=== PATIENT | male | born 1945 | race Caucasian/White ===

== ENCOUNTER 2016-10-10 13:38 | Outpatient (CLI) | payer MEDICARE | END 2016-10-10 13:39 | disposition home or self-care (01) | DX: I82.4Z1 Acute embolism and thrombosis of unspecified deep veins of right distal lower extremity (principal) ==

== ENCOUNTER 2016-10-30 13:41 | Outpatient (CLI) | payer MEDICARE | END 2016-10-30 13:42 | disposition home or self-care (01) | DX: I82.4Z1 Acute embolism and thrombosis of unspecified deep veins of right distal lower extremity (principal) ==

== ENCOUNTER 2016-11-15 12:25 | Outpatient (CLI) | payer MEDICARE | END 2016-11-15 12:26 | disposition home or self-care (01) | DX: I82.4Z1 Acute embolism and thrombosis of unspecified deep veins of right distal lower extremity (principal) ==

== ENCOUNTER 2016-11-25 11:35 | Outpatient (CLI) | payer MEDICARE | END 2016-11-25 11:36 | disposition home or self-care (01) | DX: I82.4Z1 Acute embolism and thrombosis of unspecified deep veins of right distal lower extremity (principal) ==

== ENCOUNTER 2016-12-26 15:21 | Outpatient (CLI) | payer MEDICARE | END 2016-12-26 15:22 | disposition home or self-care (01) | DX: I82.4Z1 Acute embolism and thrombosis of unspecified deep veins of right distal lower extremity (principal) ==

== ENCOUNTER 2017-01-13 13:15 | Outpatient (CLI) | payer MEDICARE | END 2017-01-13 13:16 | disposition home or self-care (01) | DX: I82.4Z1 Acute embolism and thrombosis of unspecified deep veins of right distal lower extremity (principal) ==

== ENCOUNTER 2017-02-10 13:39 | Outpatient (CLI) | payer MEDICARE | END 2017-02-10 13:40 | disposition home or self-care (01) | DX: I82.4Z1 Acute embolism and thrombosis of unspecified deep veins of right distal lower extremity (principal) ==

== ENCOUNTER 2017-02-25 10:10 | Outpatient (CLI) | payer MEDICARE ==
[2017-02-25 18:16] LABS: INR 2.1 (0.8-1.2); PT - PROTHROMBIN TIME 23.7 secs (9.9-12.6)
== END 2017-02-25 10:11 | disposition home or self-care (01) ==
LOC: LAB.F 10:10
PROVIDERS: ATTEND Emergency Medicine
DX: I82.4Z1 Acute embolism and thrombosis of unspecified deep veins of right distal lower extremity (principal)
CPT/HCPCS: 36415; 85610

== ENCOUNTER 2017-03-12 14:34 | Outpatient (CLI) | payer MEDICARE ==
[2017-03-12 18:42] LABS: INR 2.1 (0.8-1.2); PT - PROTHROMBIN TIME 23.9 secs (9.9-12.6)
== END 2017-03-12 14:35 | disposition home or self-care (01) ==
LOC: LAB.F 14:34
PROVIDERS: ATTEND Emergency Medicine
DX: I82.4Z1 Acute embolism and thrombosis of unspecified deep veins of right distal lower extremity (principal)
CPT/HCPCS: 36415; 85610

== ENCOUNTER 2017-04-14 13:44 | Outpatient (CLI) | payer MEDICARE ==
[2017-04-14 19:31] LABS: PT - PROTHROMBIN TIME 22.2 secs (9.9-12.6)
== END 2017-04-14 13:45 | disposition home or self-care (01) ==
LOC: LAB.F 13:44
PROVIDERS: ATTEND Emergency Medicine
DX: I82.4Z1 Acute embolism and thrombosis of unspecified deep veins of right distal lower extremity (principal)
CPT/HCPCS: 36415; 85610

== ENCOUNTER 2017-05-13 09:05 | Outpatient (CLI) | payer MEDICARE ==
[2017-05-13 11:42] LABS: INR 2.5 (0.8-1.2)
== END 2017-05-13 09:06 | disposition home or self-care (01) ==
LOC: LAB.F 09:05
PROVIDERS: ATTEND Emergency Medicine
DX: I82.4Z1 Acute embolism and thrombosis of unspecified deep veins of right distal lower extremity (principal)
CPT/HCPCS: 36415; 85610

== ENCOUNTER 2017-05-27 08:42 | Outpatient (CLI) | payer MEDICARE | END 2017-05-27 08:43 | disposition home or self-care (01) | LOC: LAB.F 08:42 | PROVIDERS: ATTEND Ophthalmology | DX: Z79.01 Long term (current) use of anticoagulants (principal) | CPT/HCPCS: 85610 ==

== ENCOUNTER 2017-06-13 13:20 | Outpatient (CLI) | payer MEDICARE ==
[2017-06-13 18:29] LABS: INR 2.1 (0.8-1.2); PT - PROTHROMBIN TIME 23.6 secs (9.9-12.6)
== END 2017-06-13 13:21 | disposition home or self-care (01) ==
LOC: LAB.F 13:20
PROVIDERS: ATTEND Emergency Medicine
DX: I82.4Z1 Acute embolism and thrombosis of unspecified deep veins of right distal lower extremity (principal)
CPT/HCPCS: 36415; 85610

== ENCOUNTER 2017-08-13 13:04 | Outpatient (CLI) | payer MEDICARE | END 2017-08-13 13:05 | disposition home or self-care (01) | LOC: LAB.F 13:04 | PROVIDERS: ATTEND Emergency Medicine | DX: I82.4Z1 Acute embolism and thrombosis of unspecified deep veins of right distal lower extremity (principal) | CPT/HCPCS: 36415; 85610 ==

== ENCOUNTER 2017-10-16 09:36 | Outpatient (CLI) | payer MEDICARE | END 2017-10-16 09:37 | disposition home or self-care (01) | LOC: LAB.F 09:36 | PROVIDERS: ATTEND Emergency Medicine | DX: I82.4Z1 Acute embolism and thrombosis of unspecified deep veins of right distal lower extremity (principal) | CPT/HCPCS: 85610 ==

== ENCOUNTER 2017-12-12 14:16 | Outpatient (CLI) | payer MEDICARE | END 2017-12-12 14:17 | disposition home or self-care (01) | LOC: LAB.F 14:16 | PROVIDERS: ATTEND Emergency Medicine | DX: I82.4Z1 Acute embolism and thrombosis of unspecified deep veins of right distal lower extremity (principal) | CPT/HCPCS: 85610 ==

== ENCOUNTER 2018-02-25 08:00 | Outpatient (CLI) | payer MEDICARE | END 2018-02-25 08:01 | LOC: LAB.F 08:00 | PROVIDERS: ATTEND Emergency Medicine | DX: I82.4Z1 Acute embolism and thrombosis of unspecified deep veins of right distal lower extremity (principal) | CPT/HCPCS: 85610 ==

== ENCOUNTER 2018-03-09 13:07 | Outpatient (CLI) | payer MEDICARE ==
[2018-03-09 18:27] LABS: BASOPHILS % (AUTO) 0.6 %; EOSINOPHILS # (AUTO) 0.1 10^3/uL (0.0-0.7); EOSINOPHILS % (AUTO) 1.1 %; HGB - HEMOGLOBIN 14.9 g/dL (14.0-18.0); LYMPHOCYTES # (AUTO) 0.9 10^3/uL (1.5-3.5); LYMPHOCYTES % (AUTO) 17.8 %; MEAN CORPUSCULAR HEMOGLOBIN 32.6 pg (27.0-31.0); MEAN CORPUSCULAR HGB CONC 34.6 g/dL (32.0-36.0); MEAN PLATELET VOLUME 9.4 fL (7.4-11.4); MONOCYTES # (AUTO) 0.5 10^3/uL (0.0-1.0); MONOCYTES % (AUTO) 9.2 %; NEUTROPHILS # (AUTO) 3.7 10^3/uL (1.5-6.6); NEUTROPHILS % (AUTO) 71.3 %; PLT - PLATELET COUNT 173 10^3/uL (130-450); RED BLOOD COUNT 4.58 10^6/uL (4.70-6.10); RED CELL DISTRIBUTION WIDTH 13.8 % (12.0-15.0); WHITE BLOOD COUNT 5.2 x10^3/uL (4.8-10.8)
[2018-03-09 18:48] LABS: ALBUMIN 3.9 g/dL (3.2-5.5); ALBUMIN/GLOBULIN RATIO 1.2 (1.0-2.2); ALKALINE PHOSPHATASE 59 IU/L (42-121); ALT ALANINE AMINOTRANSFERASE 29 IU/L (10-60); AST ASPARTATE AMINOTRANSFERASE 30 IU/L (10-42); BILIRUBIN,TOTAL 0.7 mg/dL (0.2-1.0); BUN - BLOOD UREA NITROGEN 17 mg/dL (6-20); CALCIUM 9.1 mg/dL (8.5-10.3); CARBON DIOXIDE - CO2 23 mmol/L (21-32); CHLORIDE 108 mmol/L (101-111); CHOL/HDL RATIO 4.2 (<5.0); CHOLESTEROL 139 mg/dL; CREATININE 0.9 mg/dL (0.6-1.2); GFR - MDRD 83 (>89); GLUCOSE 131 mg/dL (70-100); HDL CHOLESTEROL 33 mg/dL; LDL CHOLESTEROL,CALCULATED 67 mg/dL; SODIUM 138 mmol/L (135-145); TOTAL PROTEIN 7.2 g/dL (6.7-8.2); VLDL CHOLESTEROL 39 mg/dL
[2018-03-09 19:10] LABS: HB2 TOTAL 16.6 g/dL; HEMOGLOBIN A1C 0.82 g/dL; HEMOGLOBIN A1C % 6.7 % (4.6-6.2)
== END 2018-03-09 13:08 | disposition home or self-care (01) ==
LOC: LAB.F 13:07
PROVIDERS: ATTEND Internal Medicine
DX: I10 Essential (primary) hypertension (principal); E78.1 Pure hyperglyceridemia
CPT/HCPCS: 36415; 80053; 80061; 83036; 83721; 84443; 85025

== ENCOUNTER 2018-08-17 08:00 | Outpatient (CLI) | payer MEDICARE | END 2018-08-17 08:01 | disposition home or self-care (01) | LOC: LAB 08:00 | PROVIDERS: ATTEND Internal Medicine | DX: N21.0 Calculus in bladder (principal) | CPT/HCPCS: 87086 ==

== ENCOUNTER 2018-12-03 07:45 | Outpatient (CLI) | payer MEDICARE ==
[2018-12-03 11:45] LABS: HGB - HEMOGLOBIN 15.8 g/dL (14.0-18.0); MEAN CORPUSCULAR HEMOGLOBIN 31.5 pg (27.0-31.0); MEAN CORPUSCULAR HGB CONC 34.6 g/dL (32.0-36.0); MEAN PLATELET VOLUME 9.1 fL (7.4-11.4); RED BLOOD COUNT 5.03 10^6/uL (4.70-6.10); RED CELL DISTRIBUTION WIDTH 13.2 % (12.0-15.0); WHITE BLOOD COUNT 5.4 x10^3/uL (4.8-10.8)
[2018-12-03 15:11] LABS: ALBUMIN 4.2 g/dL (3.2-5.5); ALBUMIN/GLOBULIN RATIO 1.4 (1.0-2.2); ALKALINE PHOSPHATASE 78 IU/L (42-121); ALT ALANINE AMINOTRANSFERASE 45 IU/L (10-60); AST ASPARTATE AMINOTRANSFERASE 40 IU/L (10-42); BILIRUBIN,TOTAL 0.8 mg/dL (0.2-1.0); BUN - BLOOD UREA NITROGEN 19 mg/dL (6-20); CALCIUM 9.7 mg/dL (8.5-10.3); CARBON DIOXIDE - CO2 24 mmol/L (21-32); CHLORIDE 102 mmol/L (101-111); CHOLESTEROL 169 mg/dL; CREATININE 1.1 mg/dL (0.6-1.2); GFR - MDRD 65 (>89); GLUCOSE 179 mg/dL (70-100); HDL CHOLESTEROL 34 mg/dL; LDL CHOLESTEROL,CALCULATED 72 mg/dL; LDL/HDL RATIO 2.1 (<3.6); SODIUM 137 mmol/L (135-145); TOTAL PROTEIN 7.3 g/dL (6.7-8.2); VLDL CHOLESTEROL 63 mg/dL
== END 2018-12-03 07:46 | disposition home or self-care (01) ==
LOC: LAB.F 07:45
PROVIDERS: ATTEND Internal Medicine
DX: I10 Essential (primary) hypertension (principal); M54.5 Low back pain
CPT/HCPCS: 36415; 80053; 80061; 83721; 84443; 85027

== ENCOUNTER 2024-05-03 12:41 | Emergency (ER) | payer MEDICARE ==
[2024-05-03 13:08] LABS: BASOPHILS % (AUTO) 0.3 %; EOSINOPHILS % (AUTO) 0.6 %; HCT - HEMATOCRIT 49.1 % (42.0-52.0); HGB - HEMOGLOBIN 16.6 g/dL (14.0-18.0); LYMPHOCYTES # (AUTO) 1.3 10^3/uL (1.5-3.5); LYMPHOCYTES % (AUTO) 18.9 %; MEAN CORPUSCULAR HEMOGLOBIN 30.6 pg (27.0-31.0); MEAN CORPUSCULAR HGB CONC 33.8 g/dL (32.0-36.0); MEAN CORPUSCULAR VOLUME 90.4 fL (80.0-94.0); MEAN PLATELET VOLUME 10.3 fL (7.4-11.4); MONOCYTES # (AUTO) 0.5 10^3/uL (0.0-1.0); NEUTROPHILS # (AUTO) 4.9 10^3/uL (1.5-6.6); NEUTROPHILS % (AUTO) 72.9 %; PLT - PLATELET COUNT 218 10^3/uL (130-450); RED BLOOD COUNT 5.43 10^6/uL (4.70-6.10); RED CELL DISTRIBUTION WIDTH 12.9 % (12.0-15.0); WHITE BLOOD COUNT 6.7 x10^3/uL (4.8-10.8)
[2024-05-03 13:27] LABS: ALBUMIN 4.6 g/dL (3.2-5.5); ALBUMIN/GLOBULIN RATIO 1.6 (1.0-2.2); BILIRUBIN,TOTAL 0.5 mg/dL (0.2-1.0); CALCIUM 10.8 mg/dL (8.5-10.3); CREATININE 1.2 mg/dL (0.6-1.3); POTASSIUM 4.1 mmol/L (3.5-4.5); TOTAL PROTEIN 7.5 g/dL (6.4-8.9)
--- NOTE | 2024-05-03 14:22 | ED Physician Documentation ---
History of Present Illness - Stated complaint Stated Complaint: R SIDE PX - Chief complaint Chief Complaint: Abd Pain - Additonal information Additional information: 78-year-old male with history of bladder stones, hypertension, type 2 diabetes presents emergency department for right flank pain. Patient says that this feels very similar to previous episodes of bladder sounds a send in the past. His pain has been ongoing and hurting now for the last 4 days he thought he was going to be able to tough it out but pain has increased in severity today. No recent fevers or chills no nausea or vomiting no difficulty with urination. Patient says that he does not drink enough fluids Does not feel like he manages his a diet very well. Patient says that he has had it blasted before from his urologist at [place] over a decade ago. He has not taken any medication for pain at home. PD PAST MEDICAL HISTORY - Past Medical History Past Medical History: Yes Cardiovascular: Hypertension Endocrine/Autoimmune: Type 2 diabetes - Past Surgical History Past Surgical History: Yes - Present Medications Home Medications: Ambulatory Orders Medication Instructions Recorded Confirmed Atorvastatin [Lipitor] 40 mg PO QPM 05/03/24 05/03/24 Lisinopril [Zestril] 1 tab PO DAILY 05/03/24 05/03/24 carvediloL [Coreg] 1 tab PO DAILY 05/03/24 05/03/24 glipiZIDE [Glipizide ER] 1 tab PO DAILY 05/03/24 05/03/24 - Allergies Allergies/Adverse Reactions: Allergies Allergy/AdvReac Type Severity Reaction Status Date / Time bacitracin Allergy Edema Verified 05/03/24 13:06 [From Neosporin ([id number])] neomycin Allergy Edema Verified 05/03/24 13:06 [From Neosporin ([id number])] polymyxin B Allergy Edema Verified 05/03/24 13:06 [From Neosporin ([id number])] - Social History Does the pt smoke?: No Smoking Status: Never smoker Does the pt drink ETOH?: No Does the pt have substance abuse?: No - Immunizations Immunizations are current?: Yes PD ED PE NORMAL - Vitals Vital signs reviewed: Yes - General General: Alert and oriented X 3, No acute distress, Well developed/nourished - HEENT HEENT: Atraumatic, PERRL - Cardiac Cardiac: RRR - Respiratory Respiratory: No respiratory distress, Clear bilaterally - Abdomen Abdomen: Normal bowel sounds, Soft - Back Back: Other (Right CVA tenderness) - Derm Derm: Normal color, Warm and dry, No rash Results - Vitals Vitals: Vital Signs - 24 hr 05/03/24 05/03/24 05/03/24 12:46 14:49 16:00 Temperature 36.8 C Heart Rate 62 69 91 Respiratory 16 18 18 Rate Blood Pressure 160/70 H 166/86 H 171/85 H O2 Saturation 96 95 98 05/03/24 17:11 Temperature Heart Rate 71 Respiratory 22 Rate Blood Pressure 165/91 H O2 Saturation 100 Oxygen O2 Source Room air - Labs Labs: Laboratory Tests 05/03/24 05/03/24 05/03/24 13:02 13:02 16:20 WBC 6.7 RBC 5.43 Hgb 16.6 Hct 49.1 MCV 90.4 MCH 30.6 MCHC 33.8 RDW 12.9 Plt Count 218 MPV 10.3 Neut # (Auto) 4.9 Lymph # (Auto) 1.3 L Cache # (Auto) 0.5 Eos # (Auto) 0.0 Baso # (Auto) 0.0 Absolute Nucleated RBC 0.00 Nucleated RBC % 0.0 Sodium 137 Potassium 4.1 Chloride 107 Carbon Dioxide 23 Anion Gap 7.0 BUN 28 H Creatinine 1.2 Estimated GFR (MDRD) 58 L Glucose 175 H Calcium 10.8 H Total Bilirubin 0.5 AST 17 ALT 15 Alkaline Phosphatase 81 Total Protein 7.5 Albumin 4.6 Globulin 2.9 Albumin/Globulin Ratio 1.6 Lipase 28 Urine Color YELLOW Urine Clarity HAZY Urine pH 5.5 Ur Specific Thornton >=1.030 H Urine Protein TRACE Urine Glucose (UA) NEGATIVE Urine Ketones NEGATIVE Urine Occult Blood LARGE H Urine Nitrite NEGATIVE Urine Bilirubin NEGATIVE Urine Urobilinogen 0.2 (NORMAL) Ur Leukocyte Esterase NEGATIVE Urine RBC 6-10 H Urine WBC 0-3 Ur Squamous Epith Cells FEW Squamous Urine Bacteria Rare Ur Microscopic Review INDICATED Urine Culture Comments NOT INDICATED - Rads (name of study) CT KUB Relevant Findings:: Final report received, EMP independent interpretation of test (No hydronephrosis or obstructing renal stone multiple large calcified urinary bladder stones diverticulosis without diverticulitis), Other PD Medical Decision Making - ED course ED course: 78-year-old male presents emergency department for right flank pain. Patient says that that this feels very similar to previous bladder stone issues that he has had. He mostly feels this pain in his right kidney area CT was complete for further evaluation and it does not appear the patient has hydronephrosis or any obstructing renal stones but he does have multiple large calcified urinary bladder stones. He also appears to have diverticulosis without diverticulitis. Patient was given a liter of IV fluids here in the emergency department as well as some IV Toradol to help with pain and does report significant improvement in symptoms. Labs are complete for further evaluation he has no white count concerning for possible pyelonephritis BUN is slightly elevated at 28 GFR slightly suppressed at 58 his calcium is also slightly elevated at 10.8 which she is told to follow-up with his primary care provider about for further evaluation. His urine has a large amount of blood in it no leukocytes or nitrites making me less concerned or suspicious for possible urinary tract infection. He was told to follow-up with urology outpatient he says that he does have a urologist with [facility] but he is also interested in following up with urologist Dr. Heath Perry outpatient. Patient still to follow-up with his primary care provider he was told to alternate between Tylenol ibuprofen for pain and discomfort says that he wants avoid narcotics at all costs and did report that he felt significant improvement of symptoms with IV Toradol. He is able to void without any difficulty there is no further emergent workup indicated. ER return precautions given all questions answered patient safe for discharge. Departure - Departure Disposition: 01 Home, Self Care Clinical Impression: Bladder stones Instructions: Lithotripsy Shock Wave Follow-Up: Orlando Joe MD [Provider Admit Priv/Credential] - Comments: Thank you for trusting us with your care. We have treated your pain with Toradol going home you can take 600 mg of ibuprofen every 6 hours for pain and discomfort and 1000 mg of Tylenol every 8 hours for pain and discomfort. Make sure that you are drinking plenty of fluids and see below for foods to avoid for bladder stone. I have attached Dr. Orlando Joe's information below make sure that you call your primary care provider and ask for referral to his office and call his office to see how soon they are able to get you in to have these bladder stones removed. Please come back if the pain gets any worse or if you have any other concerning emergent symptoms or if you are unable to void wishing you a speedy recovery. What cant I eat/drink if I have a bladder stone? Certain foods and drinks can increase your chances of developing bladder stones. These include products that contain a lot of sodium (salt) and sugars. To help prevent bladder stones, its a good idea to avoid: Processed foods. Fast food. Canned soups and vegetables. Lunch meats. Soda pop. Forms: PCP List Discharge Date/Time: 05/03/24 17:11
--- NOTE | 2024-05-03 14:34 | CT Report ---
PROCEDURE: KUB INDICATIONS: right flank pain TECHNIQUE: A CT scan of the abdomen and pelvis was performed without the use of intravenous contrast. Images we re recorded and evaluated at appropriate window settings. Reformats: coronal and sagittal. For radiat ion dose reduction, the following was used: automated exposure control, adjustment of mA and/or kV ac cording to patient size. COMPARISON: None. FINDINGS: Image quality: Diagnostic. Lower chest: Unremarkable. Liver: No contour-deforming mass. Gallbladder: There is normal. Biliary tree: No intrahepatic or extrahepatic dilation, accounting for age. Spleen: No splenomegaly. Pancreas: No pancreatic ductal dilation. Adrenals: No adrenal nodule. Kidneys and ureters: No hydronephrosis. No contour-deforming mass. Stomach, bowel and peritoneum: Small hiatal hernia. Small duodenal diverticulum. No gastric or small bowel dilation. No abnormal wall thickening. No pathologic free fluid. Multiple diverticula are noted in the colon without evidence of diverticulitis. The appendix is normal. Lymph nodes: No central or retroperitoneal adenopathy. Vessels: No infrarenal aortic aneurysm. Reproductive organs: Unremarkable. Bladder: Bladder wall thickness is normal, accounting for underdistention. Multiple calcified bladder stones ranging in size from 0.8-1.7 cm. Pelvic lymph nodes: No adenopathy by size criteria. Bones: No aggressive osseous abnormality. Spine degenerative disc disease and facet arthropathy are n oted. Other: No significant ventral or inguinal hernia. IMPRESSION: No hydronephrosis or obstructing renal stone. Multiple large calcified urinary bladder stones. Colonic diverticulosis without evidence of diverticulitis. Normal appendix. Reviewed by: Isa Baker MD, PhD on 05/03/2024 2:33 PM PDT Approved by: Isa Baker MD, PhD on 05/03/2024 2:33 PM PDT Station ID: [id number]
[2024-05-03] MEDS: KETOROLAC 15 MG/ML VIAL IVP STA (15:19)
[2024-05-03] MEDS: SODIUM CHLORIDE 0.9% 1,000 ML IV STA (15:19)
[2024-05-03 16:28] LABS: BILIRUBIN,URINE NEGATIVE (NEGATIVE); GLUCOSE, URINE (UA) NEGATIVE (NEGATIVE); KETONES,URINE (UA) NEGATIVE (NEGATIVE); LEUKOCYTE ESTERASE, URINE NEGATIVE (NEGATIVE); NITRITE,URINE NEGATIVE (NEGATIVE); OCCULT BLOOD,URINE LARGE (NEGATIVE); PH,URINE 5.5 PH (5.0-7.5); PROTEIN,URINE TRACE mg/dL (NEGATIVE); UROBILINOGEN,URINE 0.2 (NORMAL) E.U./dL (NORMAL)
[2024-05-03 16:30] LABS: CLARITY,URINE HAZY (CLEAR)
[2024-05-03 16:38] LABS: WBC,URINE 0-3 /HPF (0-3)
[2024-05-03 16:39] LABS: BACTERIA,URINE Rare /HPF (None Seen); SQUAMOUS EPITHELIAL CELL,UR FEW Squamous (<= Few)
[2024-05-03 17:14] VITALS: BP 165/91; O2SAT 100
== END 2024-05-03 17:11 | disposition home or self-care (01) ==
LOC: ED 12:41
DX: N21.0 Calculus in bladder (principal); I10 Essential (primary) hypertension; E11.9 Type 2 diabetes mellitus without complications; Z79.899 Other long term (current) drug therapy
CPT/HCPCS: 36415; 80053; 81001; 81003; 83690; 85025; 87086; 96374; 99283